=== PATIENT | male | born 1995 | race Caucasian/White ===

== ENCOUNTER 2020-04-18 08:40 | Outpatient (CLI) | payer OTHER, SELFPAY ==
--- NOTE | ~2020-04-18 | US_ITS ---
EXAMINATION: US thyroid EXAM DATE: 04/18/2020 10:38 INDICATION: R13.10 - Dysphagia, unspecified. TECHNIQUE: Multiple grayscale and Doppler images of the thyroid were obtained (by a technologist who performed the scan) and subsequently reviewed. Individual nodules and recommendations may be reporte d in accordance with TI-RADS system as designated by the 2017 ACR White Paper TI-RADS committee. The re is no prior study for comparison. FINDINGS: The right thyroid lobe measures 3.8 x 1.0 x 1.7 cm, the left measuring 3.7 x 1.3 x 1.1 cm. There is d iffusely nonspecific hypervascular thyroid parenchyma with relatively homogeneous echogenicity. No fo amalia nodules or adjacent lymphadenopathy identified. IMPRESSION: Normal thyroid size. Reviewed, dictated and finalized at location B. RITY ADMINISTRATOR IMPRESSION: Normal thyroid size.
--- NOTE | 2020-04-18 09:17 | ECHO_ITS ---
Patient Info Name: Eric Garcia Age: 24 years : 1995 Gender: Male Ht: 77 in Wt: 130 lbs BSA: 1.76 m2 HR: 48 bpm BP: 140 / 85 mmHg Heart Rhythm: Sinus Rhythm Technical Quality: Fair Exam Date: 04/18/2020 9:29 AM Exam Location: [facility] Patient Status: Outpatient Admit Date: 04/18/2020 Staff Ordering Physician: Ayo Yap MD Produce Department Supervisor: America Meyer RCS Attending Provider: Ayo Yap MD Exam Type: CA echo doppler color flow Study Info Indications I49.8 - Other specified cardiac arrhythmias Complete two-dimensional, color flow and Doppler transthoracic echocardiogram is performed. Summary 1. Complete two-dimensional, color flow and Doppler transthoracic echocardiogram is performed. 2. Unremarkable echocardiogram. Left Ventricular Outflow Tract Name Value Normal LVOT 2D LVOT Diameter 2.0 cm LVOT Doppler LVOT Peak Gradient 1 mmHg LVOT Mean Gradient 1 mmHg LVOT VTI 14 cm LVOT VTI/AV VTI Ratio 0.8 LVOT Stroke Volume 43 ml LVOT CO 8.7 l/min LVOT CI 4.9 l/min/m2 Aortic Valve Name Value Normal AV Doppler AV Peak Velocity 73 cm/s AV Peak Gradient 2 mmHg AV Mean Gradient 1 mmHg AV VTI 18 cm AV Area (Cont Eq VTI) 2.4 cm2 >=3.0 AV Area (Cont Eq Dada) 2.6 cm2 AV Regurgitation 2D LVOT Area 3.2 cm2 Ventricles Name Value Normal LV Dimensions 2D/MM IVS Diastolic Thickness (2D) 0.6 cm 0.6-1.0 LVID Diastole (2D) 3.4 cm 4.2-5.8 LVIW Diastolic Thickness (2D) 0.6 cm 0.6-1.0 LVID Systole (2D) 2.1 cm 2.5-4.0 LVOT Diameter 2.0 cm LV Mass (2D Cubed) 51.48 g 88.00-224.00 LV Mass Index (2D Cubed) 29 g/m2 49-115 Relative Wall Thickness (2D) 0.36 LV Fractional Shortening/Ejection Fraction 2D/MM LV Fractional Shortening (2D) 38 % 25-43 LV EF (2D Teicholz) 70 % 52-72 LV Diastolic Volume (4C MOD) 66 ml LV EF (4C MOD)
== END 2020-04-18 08:41 | disposition home or self-care (01) ==
PROVIDERS: PCP Internal Medicine; Visit Provider Internal Medicine
DX: I49.8 Other specified cardiac arrhythmias (principal); R13.10 Dysphagia, unspecified; R63.0 Anorexia; E55.9 Vitamin D deficiency, unspecified; D34 Benign neoplasm of thyroid gland
CPT/HCPCS: 76536; 93306

== ENCOUNTER 2020-05-19 01:18 | Outpatient (CLI) | payer OTHER, SELFPAY ==
[2020-05-19 18:46] LABS: SARS-CoV-2 RNA PCR Negative
== END 2020-05-19 01:19 | disposition home or self-care (01) ==
LOC: ANHCOVIDDT 01:18
PROVIDERS: PCP Internal Medicine; Visit Provider Internal Medicine Gastroenterology
DX: Z01.812 Encounter for preprocedural laboratory examination (principal); Z20.822 Contact with and (suspected) exposure to COVID-19
CPT/HCPCS: C9803; U0003; U0005

== ENCOUNTER 2020-05-22 01:35 | Day surgery (SDC) | payer OTHER, SELFPAY ==
[2020-05-04 12:41] VITALS: BMI 15.4
[2020-05-22 07:13] VITALS: BP 140/100; PULSE 71; RESP 20; TEMP 36.8; O2SAT 100
[2020-05-22] MEDS: LACTATED RINGERS 1,000 ML 150 ML IV CONT (07:18)
--- NOTE | 2020-05-22 07:37 | P.PNAN_ITS ---
Anes - Initial Pre Proc Eval Procedure: Operation Date: 05/22/20 07:30 Proposed Procedures p Esophagogastroduodenoscopy - Bharathi Fontanez MD Date/Time: 05/22/20 07:37 Surgeon: Bharathi Fontanez MD Pre Op Diagnosis: Dysphagia Patient Data Age: 24 Gender: M Height: 6 ft 5 in Weight: 60.9 kg Last Vital Signs Temp 98.2 F 05/22/20 07:13 Pulse 71 05/22/20 07:13 Resp 20 05/22/20 07:13 BP 140/100 H 05/22/20 07:13 Pulse Ox 100 05/22/20 07:13 Allergies Allergy/AdvReac Type Severity Reaction Status Date / Time No Known Allergies Allergy Verified 05/22/20 07:10 Home Medications Medication Instructions Recorded Confirmed Type cholecalciferol (vitamin D3) 1,250 1,250 mcg PO WEEKLY 98 Days #14 cap 04/30/20 05/14/20 Rx mcg (50,000 unit) capsule loratadine [Claritin] 10 mg PO DAILY 05/04/20 05/14/20 History bupropion HCl 150 mg tablet,12 hr 150 mg PO BID 30 Days #60 tablet 05/14/20 05/22/20 Rx sustained-release Patient hx anesthesia problems: none Family hx anesthesia problems: none FOR[facility]LY [facility], [facility] Social History Social History Tobacco type: e-cigarettes/vaping Alcohol intake: current Alcohol use details: BEERS Substance use: current Substance use type: marijuana Other substance usage details: 05/03/2020 Living arrangements: with family Spiritual care concerns: No Anes - Eval Final PreProcedure Day of Procedure 05/22/20 07:37 Patient weight: normal Heart: regular rate and rhythm Lungs: clear to auscultation Airway: Mallampati scale class II Neurological: alert and oriented Last oral intake: >/= 8 hours ASA classification: II Emergent: no Anesthetic plan: proceed Anesthesia type and monitoring: general GIVS and standard monitoring Informed Consent: The patient's anesthetic plan and its attendant risks and benefits were discussed with the patient/family/POA. Questions were solicited and answers provided to the satisfaction of the patient/family/POA.
--- NOTE | 2020-05-22 08:01 | WPDHPUPDATE1 ---
History and Physical Update Update Date/Time: 05/22/20 08:01 History and Physical has been reviewed, including an updated exam of the patient. There are NO changes in the patient's condition. Risks, benefits, and alternatives have been discussed and questions answered. Patient agrees to proceed with procedure.
[2020-05-22 08:11] VITALS: BP 107/81; PULSE 78; RESP 12; O2SAT 98
[2020-05-22 08:21] VITALS: BP 119/70; PULSE 44; RESP 18; O2SAT 99
[2020-05-22 08:31] VITALS: BP 98/72; PULSE 56; RESP 16; O2SAT 100
[2020-05-22 08:41] VITALS: BP 123/79; PULSE 63; RESP 14; O2SAT 100
== END 2020-05-22 09:00 | disposition home or self-care (01) ==
PROVIDERS: PCP Internal Medicine; Visit Provider Internal Medicine Gastroenterology
PROC: 0DJ08ZZ Inspection of Upper Intestinal Tract, Via Natural or Artificial Opening Endoscopic (ICD-10-PCS; CPT 43235; principal; 2020-05-22 07:30)
DX: R13.10 Dysphagia, unspecified (principal); K29.00 Acute gastritis without bleeding; F17.290 Nicotine dependence, other tobacco product, uncomplicated; F12.90 Cannabis use, unspecified, uncomplicated
CPT/HCPCS: 43239; 87081; 88305; C9803; J2001; J2704; J7120; U0003; U0005

== ENCOUNTER 2020-11-27 14:57 | Emergency (ER) | payer OTHER, SELFPAY ==
--- NOTE | ~2020-11-27 | US_ITS ---
EXAMINATION: US scrotum doppler DATE: 11/27/2020 15:50 INDICATION: Right testicular pain. TECHNIQUE: Grayscale and Doppler ultrasound images of the testes were obtained. COMPARISON: None. FINDINGS: The right testis measures 4.0 x 2.3 x 2.6 cm. The left testis measures 4.1 x 2.5 x 2.8 cm. There is normal vascular flow to both testes. The right epididymis is normal with normal vascular katelyn w. The left epididymis is normal with normal vascular flow. There is no varicocele or hydrocele. IMPRESSION: 1. Normal testes. Reviewed, dictated and finalized at location A. IMPRESSION: 1. Normal testes.
[2020-11-27 15:11] VITALS: BP 143/91; PULSE 76; RESP 16; TEMP 36.9; O2SAT 100
[2020-11-27 16:24] LABS: Add Urine Microscopic? NO; Appearance Urine Clear (Clear); Bilirubin Urine Negative (Negative); Blood Urine Negative (Negative); Color Urine Yellow (Yellow); Glucose Urine UA Negative (Negative); Ketones Urine Negative (Negative); Leukocyte Esterase Ur Negative LEU/UL (Negative); Nitrate Urine Negative (Negative); Protein Urine Negative (Negative); Specific Grav Ur 1.024 (1.001-1.035); Urobilinogen Urine Negative mg/dL (<2.0)
--- NOTE | 2020-11-27 17:07 | ED.ABDPAIN ---
HPI - Abdominal Pain General Chief Complaint: Urogenital-Male Stated Complaint: testicle pain Time Seen by Provider: 11/27/20 16:23 History of Present Illness HPI narrative: Patient presents with scrotal pain. Patient reports symptoms present for approximately 1 month they are usually a dull ache with intermittent sharp shooting pain the last for 1 to 2 seconds and resolves. There were no acute changes today however he just wanted to get evaluated. Denies any trauma to the area denies any prior procedures or disease. Denies any prior history of STDs or STIs. He denies any urinary symptoms or urethral discharge Related Data Home Medications Medication Instructions Recorded Confirmed No Home Medications 11/27/20 11/27/20 Allergies Allergy/AdvReac Type Severity Reaction Status Date / Time No Known Allergies Allergy Verified 11/27/20 16:16 Review of Systems Review of Systems: CONSTITUTIONAL: Denies fever, chills, or sweats. EYES: Denies visual changes, redness, or discharge. ENT: Denies rhinorrhea, congestion, sore throat, or otalgia. CARDIOVASCULAR: Denies chest pain, palpitations, or edema. RESPIRATORY: Denies cough or dyspnea. GASTROINTESTINAL: Denies abdominal pain, nausea, vomiting, or diarrhea. GENITOURINARY: Denies dysuria or hematuria. SKIN: Denies rash or itching. MUSCULOSKELETAL: Denies back pain, joint pain, or myalgia. NEUROLOGIC: Denies headache, numbness, dizziness, or weakness. PSYCHIATRIC: Denies anxiety or depression. All systems reviewed & are unremarkable except as noted in HPI and below PMFSH Past Medical History Medical History Post-nasal drip Thyroid adenoma Social History Social History Smoking status: Current some day smoker Tobacco type: e-cigarettes/vaping Alcohol intake: current Alcohol use details: BEERS Substance use: current Substance use type: marijuana Other substance usage details: 05/03/2020 Spiritual care concerns: No Exam Narrative: GENERAL: Well-appearing, well-nourished, and in no acute distress. HEAD: Normocephalic, atraumatic. EYES: PERRLA and EOMI. ENT: Nares clear, no rhinorrhea or epistaxis. Mucous membranes moist. NECK: Supple. No masses. No JVD ABDOMEN: Soft, nontender, nondistended, normal active bowel sounds. : No lymphadenopathy no ulcerations no rash no focal swelling. Cremasteric is intact there is normal lie of the testicles are no focal areas of tenderness no evidence of pathologic masses or hernias EXTREMITIES: Normal range of motion. No edema. SKIN: Warm, dry, no rash. NEURO: No focal deficits. Alert and oriented x3. PSYCH: Normal mood and affect. Course Vital Signs Vital signs: Vital Signs Temperature 36.9 C 11/27/20 15:11 Pulse Rate 76 11/27/20 15:11 Respiratory Rate 16 11/27/20 15:11 Blood Pressure 143/91 H 11/27/20 15:11 Pulse Oximetry 100 11/27/20 15:11 Temperature 36.9 C 11/27/20 15:11 Pulse Rate 76 11/27/20 17:20 Respiratory Rate 14 11/27/20 17:20 Blood Pressure 127/65 11/27/20 17:20 Pulse Oximetry 100 11/27/20 17:20 MDM - Abdominal Pain MDM Narrative Medical decision making narrative: H&P as above, vss, pt looks clinically well, exam reassuring, labs unremarkable, img unremarkable, additional labs/img considered, symptomatic relief available as needed, on reevaluation pt continues to looks clinically well. Symptoms are of unclear etiology however given the negative work-up patient is appropriate continue outpatient evaluation and was referred to urology given the duration of his symptoms, dns active torsion, epididymitis, varicocele. plan to tx/monitor as op w/ pcm/urology f/u findings/plan discussed with pt, pt agree/comfortable with plan, return precautions given Lab Data Labs: Lab Results 11/27/20 11/27/20 Range/Units 16:15 17:16 Urine Color Yellow
[2020-11-27 17:20] VITALS: BP 127/65; PULSE 76; RESP 14; O2SAT 100
== END 2020-11-27 17:22 | disposition home or self-care (01) ==
PROVIDERS: Emergency Medicine; Emergency Provider Emergency Medicine; PCP Internal Medicine
DX: N50.819 Testicular pain, unspecified (principal); F17.290 Nicotine dependence, other tobacco product, uncomplicated
CPT/HCPCS: 76870; 81003; 87491; 87591; 93976; 99284

== ENCOUNTER 2022-07-30 09:01 | Emergency (ER) | payer OTHER, SELFPAY ==
--- NOTE | ~2022-07-30 | CT_ITS ---
EXAMINATION: CT soft tissue neck w con DATE: 07/30/2022 12:30 INDICATION: Left tonsillar swelling. TECHNIQUE: Computed tomography (CT) of the neck was performed with 75 mL Omnipaque-350 intravenous co ntrast. Automated exposure control and iterative reconstruction technique were employed. The dose-joseph gth product was 572.38 mGy-cm. COMPARISON: None FINDINGS: There is mild scarring at the lung apices. There is enlargement of left palatine tonsil wit h ill-defined central hypoattenuation, consistent with phlegmon. There is a 13 x 18 mm left high inte rnal jugular chain lymph node. The cervical carotid arteries and internal jugular veins are normal. T he mastoid air cells are normal. The paranasal sinuses are clear. The orbits are normal. IMPRESSION: 1. Enlarged left palatine tonsil with phlegmon. No drainable abscess. 2. Mildly enlarged high left internal jugular chain lymph node, likely reactive. Reviewed, dictated and finalized at location A. IMPRESSION: 1. Enlarged left palatine tonsil with phlegmon. No drainable abscess. 2. Mildly enlarged high left internal jugular chain lymph node, likely reactive .
[2022-07-30 09:41] VITALS: BP 138/95; PULSE 82; RESP 16; TEMP 37.1; O2SAT 100
[2022-07-30 11:06] LABS: Basophils Absolute Auto 0.1 K/mm3 (0.0-0.1); Basophils Percent Auto 0.6 % (0.2-1.2); Eosinophils Absolute Auto 0.1 K/mm3 (0-0.3); Eosinophils Percent Auto 0.4 % (0-4.4); Hematocrit 42.7 % (42.0-52.0); Hemoglobin 14.2 g/dL (14.0-18.0); Immature Granulocyte Absolute 0.04 K/mm3 (0.00-0.031); Immature Granulocyte Percent A 0.3 % (0-0.5); Lymphocytes Absolute Auto 2.03 K/mm3 (0.9-3.2); Lymphocytes Percent Auto 16.4 % (18.3-44.2); Mean Corpuscular HGB Conc 33.3 g/dl (32-36); Mean Corpuscular Hemoglobin 28.2 pg (26-34); Mean Corpuscular Volume 84.7 fl (80-100); Mean Platelet Volume 10.3 fl (7.4-10.4); Monocytes Absolute Auto 0.7 K/mm3 (0.1-0.6); Monocytes Percent Auto 5.5 % (2.6-8.5); Neutrophils Absolute Auto 9.5 K/mm3 (1.3-6.7); Neutrophils Percent Auto 76.8 % (45.5-73.1); Platelet Count Result 292 k/mm3 (150-375); Red Blood Count 5.04 M/mm3 (4.6-6.20); Red Cell Distribution Width 13.2 % (11.5-14.5); White Blood Count 12.4 K/mm3 (4.5-10.0)
[2022-07-30] MEDS: SODIUM CHLORIDE 0.9% IV 1,000 ML 999 ML IV CONT (11:06)
[2022-07-30] MEDS: methylPREDNISolone SOD SUCC 125 MG VIAL IV PUSH (11:08)
[2022-07-30 11:12] LABS: Alanine Aminotransferase 23 U/L (6-50); Albumin Level 4.9 g/dL (3.5-5.1); Alkaline Phosphatase 96 U/L (38-126); Anion Gap 10 mmol/L (8-16); Aspartate Amino Transferase 32 U/L (17-59); Bilirubin,Total 1.2 mg/dL (0.2-1.3); Blood Urea Nitrogen 20 mg/dL (9-20); Calcium 9.4 mg/dL (8.4-10.2); Carbon Dioxide 28 mmol/L (22-30); Chloride 101 mmol/L (98-107); Estimated CRCL calculation 105 ml/min; Estimated Glomerular Filt Rate > 60; Glucose 80 mg/dL (65-110); Potassium 5.8 mmol/L (3.4-5.0); Sodium 139 mmol/L (137-145)
[2022-07-30 11:16] LABS: Monoscreen Negative (Negative); Negative Monotest Control Negative (Negative); Positive Monotest Control Positive (Positive)
[2022-07-30 11:37] LABS: Potassium 3.8 mmol/L (3.4-5.0)
--- NOTE | 2022-07-30 11:46 | ED.GENADULT ---
HPI - General Adult General Chief complaint: Unspecified Stated complaint: swollen tonsils Time Seen by Provider: 07/30/22 10:55 History of Present Illness HPI narrative: Patient is a 26 year old male here for evaluation of swollen tonsils x 2 weeks. Patient has been seen at an urgent care facility x2 for this issue, has had negative viral swabs, strep and monotest. States that his swelling has persisted despite taking augmentin, finished the course last week. Over the past day he has had difficulty swallowing liquids due to pain. He is tolerating his secretions. No difficulty breathing, fevers, neck stiffness, headaches, cough or congestion. Related Data Allergies Allergy/AdvReac Type Severity Reaction Status Date / Time No Known Allergies Allergy Verified 07/30/22 10:32 Review of Systems Review of Systems: Gen: Denies fevers or chills Eyes: Denies eye pain or visual change ENT: Reports sore throat Respiratory: Denies shortness of breath or cough CV: Denies chest pain or palpitations GI: Denies abdominal pain nausea, emesis or diarrhea denies burning, urgency, frequency or hematuria Musculoskeletal: Denies back pain or muscle pain Neuro: Denies numbness, tingling, weakness or focal weakness Skin: Denies rash Except as documented, all other systems reviewed and negative PMFSH Past Medical History Medical History Post-nasal drip Thyroid adenoma Social History Social History Smoking status: Former smoker Tobacco type: e-cigarettes/vaping Second hand tobacco smoke exposure: No Alcohol intake: current Drinks per week: 2 Alcohol use details: BEERS Substance use: former Substance use type: marijuana Other substance usage details: 05/03/2020 Living arrangements: with family Spiritual care concerns: No Exam Narrative: APPEARANCE: Well appearing, no pain in distress, well-nourished. Head: Normocephalic and atraumatic. EYES: PERRLA/EOMI, conjunctivae clear NOSE: No nasal drainage EARS: External ear normal in appearance THROAT: Left tonsil is slightly enlarged but there is no visible abscess. NECK: Tender anterior cervical lymphadenopathy on the left. There is pain in the throat with flexion of the neck. No uvular deviation. RESPIRATORY: Airway patent, respirations nonlabored. Clear to auscultation bilaterally, no rales, rhonchi, wheezing. CARDIOVASCULAR: Regular rate and rhythm without murmurs, rubs, or gallops. ABDOMINAL: Normoactive bowel sounds. Soft, nontender, nondistended. No rebound tenderness or guarding. MUSCULOSKELETAL: Extremities are warm and well-perfused. Moves all extremities well. No edema. NEURO: Normal speech. No focal neurologic deficits. SKIN: Skin is warm and dry. No rashes. PSYCHIATRIC: Normal affect/mood. Course Vital Signs Vital signs: Vital Signs Temperature 98.8 F 07/30/22 09:41 Pulse Rate 82 07/30/22 09:41 Respiratory Rate 16 07/30/22 09:41 Blood Pressure 138/95 H 07/30/22 09:41 Pulse Oximetry 100 07/30/22 09:41 Temperature 98.8 F 07/30/22 09:41 Pulse Rate 69 07/30/22 13:19 Respiratory Rate 20 07/30/22 13:19 Blood Pressure 141/79 H 07/30/22 12:02 Pulse Oximetry 100 07/30/22 13:19 Medical Decision Making MDM Narrative Medical decision making narrative: 26-year-old male here for evaluation of continued tonsillar swelling over the past 2 weeks after completing outpatient course of Augmentin. He has tonsillar swelling on exam on the left without exudates or uvular deviation, does have some pain with range of motion of the neck. He has a white count of 12.4. Basic labs otherwise unremarkable. Alexander and strep are negative. CT shows a phlegmon in the left tonsil with some reactive lymphadenopathy but no drainable abscess. Patient reassessed, feeling much better after steroids, able to swallow liquids and eat a full me
[2022-07-30 11:50] LABS: Strep Group A RT-PCR NOT DETECTED (Negative)
[2022-07-30 12:02] VITALS: BP 141/79; PULSE 61; RESP 16; O2SAT 100
[2022-07-30 13:19] VITALS: PULSE 69; RESP 20; O2SAT 100
== END 2022-07-30 13:19 | disposition home or self-care (01) ==
PROVIDERS: Emergency Provider Physician Assistant
DX: J03.90 Acute tonsillitis, unspecified (principal); Z87.891 Personal history of nicotine dependence
CPT/HCPCS: 36415; 70491; 80053; 84132; 85025; 86308; 87651; 96361; 96374; 99284; J2930; J7030; Q9967

== ENCOUNTER 2023-06-09 16:06 | Outpatient (CLI) | payer OTHER, SELFPAY ==
--- NOTE | ~2023-06-09 | XR_ITS ---
EXAMINATION: XR lumbar spine 2-3V DATE: 06/09/2023 16:50 INDICATION: Left groin pain. TECHNIQUE: 3 views of lumbar spine were obtained. COMPARISON: None. FINDINGS: There is 5 degrees levocurvature of lumbar spine. Vertebral body heights are normal. Interv ertebral disc heights are normal. The facet joints are unremarkable. IMPRESSION: 1. No etiology for the patient's symptoms. Reviewed, dictated and finalized at location E. P RESERVATIONS COORDINATOR
--- NOTE | ~2023-06-09 | XR_ITS ---
EXAMINATION: XR hip LT min 2V DATE: 06/09/2023 16:50 INDICATION: Left hip pain. TECHNIQUE: 2 views of left hip were obtained. COMPARISON: None. FINDINGS: Bone alignment is normal. No fracture. Left hip joint space is normal. IMPRESSION: 1. Normal left hip. Reviewed, dictated and finalized at location E. TECHNICIAN IMPRESSION: 1. Normal left hip.
== END 2023-06-09 16:07 | disposition home or self-care (01) ==
LOC: ANHIMG 16:07
PROVIDERS: PCP Nurse Practitioner Family; Visit Provider Nurse Practitioner Family
DX: R10.32 Left lower quadrant pain (principal); M54.50 Low back pain, unspecified
CPT/HCPCS: 72100; 73502

== ENCOUNTER 2023-07-21 15:45 | Outpatient (RCR) | payer OTHER, SELFPAY ==
--- NOTE | 2023-07-03 15:47 | OPREHPOC ---
Outpatient Therapy Plan of Care This is a Multidisciplinary Plan of Care that may contain components documented by all disciplines (PT, OT, and ST.) PT Problem 1 PT Problem #1 Knowledge Deficit PT Goal 1 Goal *indep with HEP * correct posture with exercises * pt voice correct set up of work station PT Problem 2 PT Problem #2 Pain PT Goal 1 Goal 1* pt report pain 6/10 at worst 2* pt report times of NO pain 3* self assessment LE functional scale rating of 20% limitation 4* pt report with sleeping, awaken 2x/night due to pain PT Problem 3 PT Problem #3 Impaired Strength PT Goal 1 Goal improve stability of trunk and scapula, for improve position of spine: 1* pt perform 20 reps of trunk mat and standing exercises with good stability 2* pt have minimal movement of R and L scapula with shoulder flexion
--- NOTE | 2023-07-03 15:47 | PTOPEVAL1 ---
Assessment and note entered by Carla Vleásquez, PT Evaluation Information Assessment Status Evaluation Diagnosis chronic L hip pain Onset August 2022 Subjective Information doing martial arts, had popping and clicking in L hip; xrays negative; steroids and anti inflammatory did not help; had PT at another facility- only was given stretches and he went only a few visits; due to hip pain- have stopped doing martial arts & limited out door activities, riding bike, jogging ; have only seen general dr about hip/ no other consults yet; have history of chronic back pain, has been to chiropractor and has been told he has subluxed disc 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 He reports onset with martial arts, with popping and pain in hip. Oswestry self assessment score of 50 % limitation in activity--sitting, activity and fitness activities and sleeping. Walking is OK. With the evaluation: he has winging of scapula with hyper mobility with shoulder motions; pain with standing trunk extension and rotation R, supine R hip flexion; with palpation, there are spasms and tenderness over thoracic spine; poor sitting, standing and work station set up. Weakness over trunk and poor stabilization of scapula. He has good flexibility of trunk and hips. Skilled PT services to decrease pain and spasms over his back; therapeut
--- NOTE | 2023-07-24 15:35 | PCPTNOTE ---
pt called and canceled today's reevaluation=--stated he was doing his HEP and doing well, not need anymore therapy.
--- NOTE | 2023-07-24 15:37 | PTOPDC ---
Assessment and note entered by Carla Velásquez, PT [place] Information Assessment Status Discharge - Pt Not Present Diagnosis chronic L hip pain Onset August 2022 Assessment PT Clinical Summary Eric called and canceled his reevaluation appointment, stated he was doing well, doing his HEP and did not need any more therapy. The goals were not addressed. Discharge PT services per pt request. Plan of Care PT Services Indicated No
== END 2023-07-27 09:43 | disposition home or self-care (01) ==
LOC: ANHPT 15:45
PROVIDERS: PCP Nurse Practitioner Family; Visit Provider Nurse Practitioner Family
DX: M25.552 Pain in left hip (principal)
CPT/HCPCS: 97110; 97112; 97140; 97162; 97530